=== PATIENT | female | born 1940 | race Caucasian/White ===

== ENCOUNTER 2017-12-15 12:56 | Emergency (ER) | payer MEDICARE, OTHER ==
[~2017-12-15] VITALS: Ht 160 cm; Wt 83.9 kg
[2017-12-15] MEDS ORDERED: HYDROCHLOROTHIA25 MG PO (14:08)
[2017-12-15] MEDS ORDERED: KEFLEX500 MG PO (14:08)
[2017-12-15] MEDS ORDERED: LOVASTATIN40 MG PO (14:09)
[2017-12-15] MEDS ORDERED: K-TAB ER20 MEQ PO (14:09)
[2017-12-15] MEDS ORDERED: NORTRIPTYLINE H10 MG PO (14:10)
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
[2017-12-15] MEDS ORDERED: LIPITOR20 MG PO (15:18)
[2017-12-15] MEDS ORDERED: ASPIRIN81 MG PO (15:19)
[2017-12-15] MEDS ORDERED: FENOFIBRATE145 MG PO (15:19)
[2017-12-15] MEDS ORDERED: CRANBERRY300 MG PO (15:20)
[2017-12-15] MEDS ORDERED: CLARITIN10 M2 PO (15:20)
[2017-12-15] MEDS ORDERED: MYRBETRIQ50 MG PO (15:21)
== END 2017-12-15 22:19 | disposition short-term general hospital (02) ==
LOC: ED 12:56
DX: K83.1 Obstruction of bile duct (principal); I10 Essential (primary) hypertension; E78.00 Pure hypercholesterolemia, unspecified; Z91.030 Bee allergy status; Z88.1 Allergy status to other antibiotic agents; Z91.040 Latex allergy status; Z79.899 Other long term (current) drug therapy; Z79.82 Long term (current) use of aspirin
CPT/HCPCS: 36415; 74177; 80053; 81001; 83690; 85025; 96365; 96366; 96375; 99285; J0692; J1170; J2405; Q9967